=== PATIENT | female | born 1970 | race Caucasian/White ===

== ENCOUNTER 2023-11-05 09:13 | Emergency (ER) | payer OTHER, SELFPAY ==
[2023-11-05 10:01] VITALS: BP 180/101; PULSE 68; RESP 16; TEMP 36.7; O2SAT 97; BMI 65.8
[2023-11-05 11:07] LABS: MANUAL DIFF FLAG NO
[2023-11-05 11:20] LABS: Basophils Percent Auto 0.3 % (0-2); Eosinophils Absolute Auto 0.2 X10*3/uL (0.0-0.4); Eosinophils Percent Auto 3.1 % (0-4); Hemoglobin 15.9 g/dl (12.0-16.0); Imm Gran Abs Auto 0.01 X10*3/uL (0.00-0.03); Imm Gran Pct Auto 0.1 % (0.0-0.4); Lymphocytes Absolute Auto 2.4 X10*3/uL (1.2-4.9); Lymphocytes Percent Auto 31.7 % (20-40); Mean Corpuscular HGB Conc 33.1 g/dl (31.0-35.0); Mean Corpuscular Hemoglobin 30.5 pg (27.0-33.0); Mean Corpuscular Volume 92.1 fL (80.0-98.0); Mean Platelet Volume 10.2 fL (9.4-12.3); Monocytes Absolute Auto 0.4 X10*3/uL (0.1-1.2); Monocytes Percent Auto 5.6 % (2-11); Neutrophils Absolute Auto 4.4 x10*3/uL (2.0-8.3); Neutrophils Percent Auto 59.2 % (45-73); Platelet Count 249 X10*3/uL (160-400); Red Blood Count 5.21 X10*6/uL (4.20-5.50); Red Cell Distribution Width 12.7 % (11.0-16.0); White Blood Count 7.5 X10*3/uL (4.8-10.8)
[2023-11-05 11:24] LABS: Alanine Aminotransferase 72 U/L (0-31); Albumin Level 4.2 g/dL (3.5-5.0); Alkaline Phosphatase 77 U/L (39-117); Anion Gap 15 (12-20); Aspartate Amino Transferase 40 U/L (5-31); Bilirubin Total 0.5 mg/dL (0.0-1.0); Blood Urea Nitrogen 18 mg/dL (9-16); Carbon Dioxide 29 mmol/L (22-29); Chloride 104 mmol/L (96-108); Estimated Glomerular Filt Rate > 60; Glucose Random 99 mg/dL (60-115); Potassium 4.3 mmol/L (3.3-5.1); Sodium 144 mmol/L (135-145); Total Protein 7.6 g/dL (6.5-8.0)
[2023-11-05 15:35] VITALS: BP 164/84; PULSE 84; RESP 16; TEMP 36.6; O2SAT 97
[2023-11-05 15:52] LABS: Appearance Urine Clear; Color Urine Yellow; Glucose Urine UA Negative (Negative); Leukocyte Esterase Urine Negative (Negative); Nitrite Urine Negative (Negative); Specific Gravity - Urine 1.025 (1.005-1.025); Urine Blood Negative (Negative); Urine Ketones 15 mg/dL (Negative); Urine Protein Negative (Neg-Trace)
[2023-11-05 20:17] VITALS: BP 148/84; PULSE 82; RESP 16; TEMP 36.8; O2SAT 98
[2023-11-05 21:07] LABS: Lipase 18 U/L (8-78)
--- NOTE | 2023-11-05 21:07 | ED.ABDPAIN ---
HPI - Abdominal Pain General Chief Complaint: Abdominal Pain Stated Complaint: Stomach Pain Vomiting Time Seen by Provider: 11/05/23 20:50 Source: patient Mode of arrival: ambulatory Limitations: no limitations History of Present Illness HPI narrative: 53-year-old female who presents emergency department for evaluation of epigastric pain, nausea vomiting x2 days. The patient states that she woke up yesterday morning with epigastric pain. She states this morning the pain was worse and she developed diarrhea. She states she had 7 episodes of loose stool with the last episode at 14:00 hours today. She also had 3 episodes of emesis. She has had no blood in the emesis or the diarrhea. She is complaining of epigastric pain which she describes as a squeezing sensation. She states that she has had nothing to eat or drink since 14:00 hours and her symptoms seemed to have resolved. She does have a history of GERD did take her pantoprazole today with only minimal relief for pain. She denied fever, chills, sore throat, cough, shortness of breath, dyspnea on exertion, myalgias or arthralgias Related Data Previous Rx's ?Medication ?Instructions ?Recorded hydrocodone 5 mg-acetaminophen 325 1 tab PO Q6H PRN pain #14 tabs 11/05/23 mg tablet ondansetron 4 mg disintegrating 4 mg PO Q6-8H PRN nausea and 11/05/23 tablet vomiting #14 tabs Allergies Allergy/AdvReac Type Severity Reaction Status Date / Time hydroxyzine [From Atarax] Allergy Hives Verified 11/05/23 10:03 ibuprofen Allergy Hives Verified 11/05/23 10:04 meperidine [From Demerol] Allergy Hives Verified 11/05/23 10:03 naproxen [From Naprosyn] Allergy Hives Verified 11/05/23 10:01 penicillin V Allergy Hives Verified 11/05/23 10:04 tramadol Allergy Hives Verified 11/05/23 10:01 Review of Systems Review of Systems Yes all other systems are reviewed and are negative [facility] Past Medical History [facility] Narrative: Past medical history: GERD. Surgical history: None. Social history: The patient is a nurse. She denies tobacco and alcohol use. Social History Social History Advance Directives: No Advance Directives Information Provided: No Physical Exam ED Vital Signs: Vital Signs - 24 hr 11/05/23 10:01 11/05/23 15:35 11/05/23 20:17 Temperature 98.0 F 97.9 F 98.3 F Pulse Rate 68 84 82 Respiratory Rate 16 16 16 Blood Pressure 180/101 H 164/84 H 148/84 H Pulse Oximetry 97 97 98 Oxygen Delivery Method Room Air Room Air Room Air BMI result Body Mass Index 65.8 Vital signs did reveal an elevated blood pressure of 180/101 otherwise were unremarkable. Exam: General: Awake, alert in no distress Head: Normocephalic, atraumatic EENT: PERRL, Lids normal, sclera normal, conjunctiva normal, nose normal , ears normal, throat without erythema or exudates Neck: Supple, no adenopathy Lung: breath sounds symmetric, no wheezing, rales or rhonchi Heart: regular rate and rhythm, normal S1, S2 no murmurs or rubs Abdomen: soft, mild to moderate epigastric tenderness, nondistended, normal bowel sounds Extremities:,moves all extremities symmetrically Neuro: Awake, alert, oriented, normal speech Psych: Pleasant, cooperative Medical Decision Making Medical Decision Making MDM Narrative: 53-year-old female with a history of GERD who presents emergency department for evaluation of 2 days of epigastric pain, nausea, vomiting and diarrhea. She had no other systemic symptoms. Patient took her pantoprazole with only minimal relief of her symptoms. The patient's vomiting and diarrhea have resolved since 14:00 hours but she has not had anything to eat or drink. Patient's vital signs did reveal an elevated blood pressure otherwise unremarkable. Abdominal exam did reveal epigastric tenderness. Differential diagnosis: ?Includes but is not limited to GERD, esophagitis, viral syndrome, electrolyte abnormalities, anemia Following evaluation was ordered: CBC, CMP, urinalysis Patient was initially treated with the following: Zofran 4 mg ODT Course: 21:19 My interpretation the patient's laboratory evaluation as follows. CBC was normal. CMP revealed elevated BUN of 18 and elevated AST and ALT of 40 and 72. Urinalysis was negative. Patient's symptoms and presentation are consistent with viral syndrome causing her epigastric pain, nausea, vomiting and diarrhea. Patient has multiple drug allergies but she can take hydrocodone therefore she was prescribed Marcy 325/5 mg, 1 pill every 6 hours as needed for pain and Zofran ODT 4 mg every 6-8 hours as needed for nausea vomiting. She was given printed and verbal instructions and a work note and discharged home. Admission/Observation Consideration of admission/observation: Escalation of care including admission/observation considered Lab Data MDM Lab Attestation statement: I reviewed the patient's lab results. 11/05/23 11:03 11/05/23 11:03 Labs: Lab Results 11/05/23 11/05/23 Range/Units 11:03 15:41 WBC 7.5 (4.8-10.8) X10*3/uL RBC 5.21 (4.20-5.50) X10*6/uL Hgb 15.9 (12.0-16.0) g/dl Hct 48.0 H (37.0-47.0) % MCV 92.1 (80.0-98.0) fL MCH 30.5 (27.0-33.0) pg MCHC 33.1 (31.0-35.0) g/dl RDW 12.7 (11.0-16.0) % Plt Count 249 (160-400) X10*3/uL MPV 10.2 (9.4-12.3) fL Immature Gran % (Auto) 0.1 (0.0-0.4) % Neut % (Auto) 59.2 (45-73) % Lymph % (Auto) 31.7 (20-40) % [place] % (Auto) 5.6 (2-11) % Eos % (Auto) 3.1 (0-4) % Baso % (Auto) 0.3 (0-2) % Lymph # (Auto) 2.4 (1.2-4.9) X10*3/uL [place] # (Auto) 0.4 (0.1-1.2) X10*3/uL Eos # (Auto) 0.2 (0.0-0.4) X10*3/uL Baso # (Auto) 0.0 (0.0-0.2) X10*3/uL Abs Immat Gran (auto) 0.01 (0.00-0.03) X10*3/uL Absolute Neuts (auto) 4.4 (2.0-8.3) x10*3/uL Absolute Nucleated RBC 0.000 (0.0-0.012) X10*3/uL Nucleated RBC % (auto) 0.0 (0.0-0.2) /100WBC Sodium 144 (135-145) mmol/L Potassium 4.3 (3.3-5.1) mmol/L Chloride 104 (96-108) mmol/L Carbon Dioxide 29 (22-29) mmol/L Anion Gap 15 (12-20) BUN 18 H (9-16) mg/dL Creatinine 0.77 (0.5-1.4) mg/dL Estim Creat Clear Calc 151.0 Estimated GFR > 60 Random Glucose 99 (60-115) mg/dL Calcium 10.0 (8.4-10.2) mg/dL Total Bilirubin 0.5 (0.0-1.0) mg/dL AST 40 H (5-31) U/L ALT 72 H (0-31) U/L Alkaline Phosphatase 77 (39-117) U/L Total Protein 7.6 (6.5-8.0) g/dL Albumin 4.2 (3.5-5.0) g/dL Urine Color Yellow Urine Appearance Clear Urine pH 7.0 (5.0-9.0) Ur Specific [place] 1.025 (1.005-1.025) Urine Protein Negative (Neg-Trace) mg/dL Urine Glucose (UA) Negative (Negative) mg/dL Urine Ketones 15 (Negative) mg/dL Urine Blood Negative (Negative) Urine Nitrite Negative (Negative) Ur Leukocyte Esterase Negative (Negative) Prescription Management I considered prescription management with: Pain Medication and Other (Antiemetics) Discharge Plan Discharge Clinical Impression: Viral syndrome, Abdominal pain, Vomiting, Diarrhea Patient Disposition: Home, Self-Care Instructions: Viral Syndrome (ED) Additional Instructions: Your CBC and CMP were unremarkable except for slight elevation in your AST and ALT of 40 and 72. Your urinalysis was normal. Your symptoms are consistent with a gastroenteritis viral infection. Continue to take your pantoprazole. Take Zofran ODT 4 mg pills, 1 pill dissolved in your mouth every 8 hours as needed for nausea and vomiting. Prescriptions: New hydrocodone-acetaminophen 5-325 mg tablet 1 tab PO Q6H PRN (Reason: pain) Qty: 14 0RF Rx Instructions: Partial Fill upon patient request. ondansetron 4 mg tablet,disintegrating 4 mg PO Q6-8H PRN (Reason: nausea and vomiting) Qty: 14 0RF Stand Alone Forms: Work/School Release Print Language: Palestinian
[2023-11-05] MEDS: Ondansetron ODT 4 MG TAB.RAPDIS TRANSLINGU (21:24)
[2023-11-05 21:27] VITALS: BP 148/84; PULSE 82; RESP 16; TEMP 36.8; O2SAT 98
== END 2023-11-05 21:27 | disposition home or self-care (01) ==
PROVIDERS: Emergency Provider Emergency Medicine Emergency Medical Services
DX: R11.2 Nausea with vomiting, unspecified (principal); Z79.899 Other long term (current) drug therapy
CPT/HCPCS: 36415; 80053; 81003; 83690; 85025; 99283